=== PATIENT | female | born 1995 | race Caucasian/White ===

== ENCOUNTER 2018-08-27 21:26 | Emergency (ER) | payer OTHER, SELFPAY ==
[2018-08-27 21:27] VITALS: BP 122/95; PULSE 90; PULSE 92; RESP 14; TEMP 36.8; O2SAT 98; BMI 33.1
--- NOTE | 2018-08-27 21:45 | CM.ED ---
SOCIAL WORK PATIENT PRESENTS BY PD FOR SUICIDAL IDEATION. SPOKE WITH DR. OROZCO AND NURSING. CRISIS ALREADY AWARE OF PATIENT AND ALEXANDRA TO BE IN TO ASSESS PATIENT. SVITLANA ARNDT, CLERK, [employer].
--- NOTE | 2018-08-27 21:48 | ED.DCSUM_ITS ---
- ER Visit Summary Date of Service: 08/27/18 Chief Complaint: Suicidal ideation History of Present Illness: The patient is a 22 F presenting with suicidal ideation. Patient states she called crisis this evening. She states she wanted to talk through her anxiety. When she told the counselor that she was suicidal the police were called. She was brought to the ED. Patient states she has had suicidal thoughts with plan to cut herself. She has had past suicide attempts with cutting. Last was 6 months ago. [place]. She does not have a counselor or psychiatrist. She has a history of bipolar and borderline personality. She admits to occasional alcohol use, denies drug use. Physical Examination: Vitals are stable. Patient is afebrile. Alert no acute distress. HEENT exam is unremarkable. Neck is supple. Lungs are clear and equal bilaterally. Heart is regular rate and rhythm. Abdomen is soft nontender nondistended. Extremities are unremarkable. Skin is warm and dry. No focal neurologic deficit. Pressured speech. Suicidal ideation Remainder of exam is unremarkable. Emergency Department Course and Treatment: CBC, chemistries unremarkable. hCG negative. Alcohol negative. Tox is pending. Discussed with the counseling center for evaluation. Disposition: Per counseling center Impression: Suicidal ideation This note was generated with [email or web address] dictation software. It may contain incorrect words, spelling, and punctuation that were not noted in review of the chart prior to signing ED Disposition - Plan for ED Patient: Referrals: NOT,DEFINED [NON-STAFF] -
[2018-08-27 22:27] VITALS: RESP 16
[2018-08-27 22:27] LABS: Absolute Lymphocyte Count 2.18 X10^3/ul (0.83-4.51); Absolute Neutrophil Count 2.7 X10^3/uL (2.0-7.7); Basophil# 0.01 X10^3/uL; Basophil% 0.2 % (0-1); Eosinophil# 0.13 X10^3/uL; Eosinophils% 2.3 % (0-5); Hemoglobin 13.9 g/dl (12.0-15.0); Lymphocyte # 2.18 X10^3/ul (4.0); Lymphocyte % 38.8 % (19-41); Mean Corp Hgb Conc 34.8 g/gl (32-36); Mean Corpuscular Hgb 30.3 pg (27.0-32.0); Mean Corpuscular Volume 87.3 fL (81-99); Monocyte# 0.57 X10^3/uL; Monocyte% 10.1 % (0-10); Neutrophil # 2.72 X10^3/uL (2.7-7.7); Neutrophil % 48.4 % (47-70); POSITIVE COUNT NO; POSITIVE DIFFERENTIAL NO; POSITIVE MORPHOLOGY NO; Platelet Count 235 K/mm3 (150-450); RBC Distribution Width SD 38.6 fl (35.1-43.9); Red Blood Count 4.58 M/mm3 (4.2-5.4); White Blood Count 5.6 K/mm3 (4.4-11.0)
[2018-08-27 22:32] LABS: Internal QC Validated? YES +Cl - CLEAR BKGD; Pregnancy, Serum, hCG Quali. NEGATIVE Negative
[2018-08-27 22:37] LABS: Anion Gap 7 (5-15); BUN 13 mg/dL (7-18); BUN/Creat Ratio 17.9 RATIO (10-20); Calcium,Total 8.6 mg/dL (8.5-10.1); Chloride 109 mmol/L (98-107); Creatinine, Serum 0.73 mg/dL (0.55-1.02); EST Glomerular Filtration Rate 106 mL/min (>60); Est Glom Filt Rate - Afr Amer 128 mL/min (>60); Estimated Creatinine Clearance 104.38 ml/min; Glucose 106 mg/dL (74-106); Potassium 3.6 mmol/L (3.5-5.1); Sodium Level 140 mmol/L (136-145)
[2018-08-27 23:27] VITALS: PULSE 88; RESP 14
--- NOTE | 2018-08-27 23:46 | NURSING ---
ACCEPTED TO [facility] BY DR. PAL BRONSON [facility] [phone] REPORT
[2018-08-27 23:58] LABS: Amphetamine Urine VISTA NEGATIVE (<1000 ng/mL); Barbiturate Urine VISTA NEGATIVE (< 200 ng/mL); Benzodiazepine Urine VISTA NEGATIVE (< 200 ng/mL); Cocaine Urine VISTA NEGATIVE (< 300 ng/mL); Ecstacy Urine VISTA NEGATIVE (< 500 ng/mL); Methadone Urine VISTA NEGATIVE (< 300 ng/mL); PCP Urine VISTA NEGATIVE (< 25 ng/mL); THC Urine VISTA NEGATIVE (< 50 ng/mL); Vista UDS pH Range 7
[2018-08-28] VITALS (7 sets, daily range): BP systolic 81–110; BP diastolic 45–54; PULSE 72–88; RESP 14–18; TEMP 36.8; O2SAT 97–100
[2018-08-28] MEDS: hydrOXYzine PAM 25 MG Capsule PO (00:39)
== END 2018-08-28 10:40 ==
PROVIDERS: Emergency Provider Emergency Medicine
DX: F31.9 Bipolar disorder, unspecified (principal); R45.851 Suicidal ideations; F60.3 Borderline personality disorder; F41.9 Anxiety disorder, unspecified; Z79.899 Other long term (current) drug therapy; Z91.5 Personal history of self-harm; Z87.891 Personal history of nicotine dependence
CPT/HCPCS: 80048; 80307; 80320; 84703; 85025; 99284; G0480

== ENCOUNTER 2018-12-03 08:52 | Outpatient (RCR) | payer OTHER, SELFPAY ==
--- NOTE | 2018-12-03 09:00 | BH.SGPN.GN ---
Behaviors/Verbalizations/Mental Status: [] Eye contact is good. Motor activity is appropriate. Appearance is causal. Speech is Appropriate. Mood is depressed. Affect is flat. Thoughts are linear and logical. No evidence of psychosis. Reviewed daily check in sheet and pt reports 2.5/5 for suicidal ideations and 0/5 for intent. Therapist notified. Client Response/Progress/Benefit: [] Today was pt's first day in group. She was attentive and provided some feedback to peers. States that she is in IOP to find out who I am and what I want to do with my life. Shared that she has had several inpatient psychiatric admissions and treatment with limited results. Continues to reports daily depression and fleeting suicidal ideations. Emotion for today is unfulfilled. Feels like she will never reach her potential. Group was support and provided encouragement which was beneficial. Will continue in IOP to maintain safety, stabilize mood, and prevent decompensation. Narrative Note: []
--- NOTE | 2018-12-03 10:00 | BH.SGPN.GN ---
Behaviors/Verbalizations/Mental Status: []Eye contact is good. Motor activity is appropriate. Appearance is causal. Speech is Appropriate. Mood is anxious. Affect is constricted. Thoughts are linear and logical. No evidence of psychosis. Client Response/Progress/Benefit: []Pt responded well to session AEB pt listening attentively to others and contributing to discussion at times. Pt connected with peers during discussion about common unhealthy skills that are often used to manage stressors and mental health. Pt stated she often uses sleep and overscheduling as unhealthy coping skills. Pt identified habit as one reason she continues to use unhealthy coping skills. Worked with group to identify the following strategies to be helpful with increasing healthy coping skills: self-awareness, stopping self and using healthy skill, practicing new skills, and motivation. Pt able to make connections when processing group activity about importance of creating a stable base of healthy coping skills. Pt seemed to benefit from increased awareness of benefits of using healthy coping skills and understanding importance of having balance between internal and external coping skills. Pt to continue IOP level of care to maintain safety, increase healthy coping skills, and prevent decompensation. Narrative Note: []
--- NOTE | 2018-12-03 11:02 | BH.SGPN.GN ---
Behaviors/Verbalizations/Mental Status: []Client alert and oriented, casually dressed and groomed. Eye contact good. Motor activity appropriate. Speech within normal limits. Affect constricted, mood anxious. Thoughts linear, logical, no signs of hallucinations or delusions. Client Response/Progress/Benefit: []Client responded well to session, taking notes throughout and listening during group brainstorming. Client appeared to connect with the activity from second group and helped the group identify benefits of having a strong foundation of internal and external coping skills. Client shared she wants to work on building her internal coping skills as client states ?I use a lot of external.? Client attentive during group discussion the different categories of coping skills and provided some examples. Client agreed with peers that it is important to have a variety of coping skills. Client created a coping skills ?menu? from the five categories of coping skills. Client selected crafting, warm shower, thought logs, giving herself credit, and holding ice cubes as her coping skills to try. Client appeared to benefit from increasing her repertoire of healthy coping skills. Client?s first day in IOP, no progress to document. Will continue IOP to prevent decompensation and improve mood stability.
--- NOTE | 2018-12-03 14:16 | BH.COMM ---
Communication Note - Communication with Client Communication Note: Therapist checked in with client due to her symptom tracker scores for suicidal ideation this AM. Reports that I always have thoughts, but client denies any active suicidal ideations, plan, or intent as of 12/03/18. Client reports ability to maintain safety and was future oriented as client looks forward to a trip this weekend.
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
== END 2018-12-09 14:00 | disposition home or self-care (01) ==
LOC: BHIOP 08:52
PROVIDERS: Referring Provider Psychiatry & Neurology Psychiatry; Visit Provider Psychiatry & Neurology Psychiatry
DX: F33.2 Major depressive disorder, recurrent severe without psychotic features (principal)
CPT/HCPCS: H0035; 90853

== ENCOUNTER → 2019-03-30 15:50 | Outpatient (CLI) | payer OTHER, SELFPAY ==
--- NOTE | 2019-03-30 15:55 | US_ITS ---
STUDY: THYROID ULTRASOUND REASON FOR EXAM: Female, 23 years old. Palpable nodule TECHNIQUE: Ultrasound evaluation of the thyroid was performed with real-time and static kingston-scale imaging. COMPARISON: None. FINDINGS: RIGHT LOBE: The right lobe of the thyroid gland measures 5.4 x 2.3 x 2.2 cm. There is a heterogeneous echotexture. There are no demonstrated solid, cystic or complex lesions. LEFT LOBE: The left lobe of the thyroid gland measures 5.8 x 2.1 x 1.9 cm. There is a heterogeneous echotexture. There are no demonstrated solid, cystic or complex lesions. ISTHMUS: The isthmus measures 6 mm . The regional lymph nodes are normal. The thyroid appears to be mildly hypervascular. US/Thyroid IMPRESSION: Mildly prominent heterogeneous appearance to the thyroid which appears slightly diffusely hypervascular possibly representing thyroiditis or Graves'' disease. Clinical correlation recommended No well-defined discrete nodule is noted.. Electronically Signed: Johnny Arboleda MD at 17:39 EST , Service support ,
== END ==
PROVIDERS: Family Provider Family Medicine; PCP Family Medicine; Referring Provider Family Medicine; Visit Provider Family Medicine
DX: E04.1 Nontoxic single thyroid nodule (principal)
CPT/HCPCS: 76536